=== PATIENT | male | born 2000 | race Two or more races ===

== ENCOUNTER 2022-09-05 11:53 | Emergency (ER) | payer MEDICAID ==
[~2022-09-05] VITALS: Ht 195.6 cm; Wt 156.9 kg
[2022-09-05 12:04] VITALS: BP 145/105
[2022-09-05] MEDS ORDERED: CEFTRIAXONE 1 G VIAL IM ONE (12:30)
[2022-09-05] MEDS ORDERED: METF-440 PO (12:35)
[2022-09-05] MEDS ORDERED: OXYM15MI4 NS (12:35)
[2022-09-05] MEDS ORDERED: DOXY100C2 PO (12:35)
[2022-09-05] MEDS ORDERED: LIDOCAINE /MPF 1% VIAL 5 ML VIAL ONE (12:44)
[2022-09-05] MEDS ORDERED: CEFTRIAXONE 500 MG VIAL ONE (12:44)
--- NOTE | 2022-09-05 13:24 | NUR ---
Patient discharged to home in stable condition. Written and verbal after care instructions given. Patient verbalizes understanding of instruction.
== END 2022-09-05 13:25 | disposition home or self-care (01) ==
LOC: ER 12:00
DX: Z11.3 Encounter for screening for infections with a predominantly sexual mode of transmission (principal); H92.01 Otalgia, right ear; R09.81 Nasal congestion; E11.9 Type 2 diabetes mellitus without complications
CPT/HCPCS: 99283; 96372; 82962; 87491 ×2; 87591; J0696; J3490

== ENCOUNTER 2022-12-12 08:08 | Emergency (ER) | payer MEDICAID, OTHER ==
[~2022-12-12] VITALS: Ht 190.5 cm; Wt 154.2 kg
[~2022-12-12 08:08] MED LIST: DOXY100C2 PO; METF-440 PO; OXYM15MI4 NS
--- NOTE | 2022-12-12 08:20 | NUR ---
RECEIVED PT 22 YRS MALE WALKING IN C/O RUN OUT OF HIS MEDICTION DIABETES FOR ONE DAY TODAY C/O GENE ON rt eyes
--- NOTE | 2022-12-12 08:23 | NUR ---
accu chech done 278mg/ld notefed
--- NOTE | 2022-12-12 08:34 | NUR ---
See by dr. gonzalez at bed side
[2022-12-12] MEDS ORDERED: METF-440 PO (08:41)
[2022-12-12] MEDS ORDERED: SYRI-614 SUBCUT (09:14)
[2022-12-12] MEDS ORDERED: INSU500V IJ (09:14)
[2022-12-12] MEDS ORDERED: INSU100V7 SQ (09:14)
--- NOTE | 2022-12-12 09:15 | NUR ---
DR. GRAHAM SPOOK WITH PT
--- NOTE | 2022-12-12 09:22 | NUR ---
Patient discharged to home in stable condition. Written and verbal after care instructions given. Patient verbalizes understanding of instruction.
[2022-12-12 09:25] VITALS: BP 170/95
[2022-12-12] MEDS ORDERED: NPH,100V SQ (09:52)
== END 2022-12-12 09:26 | disposition home or self-care (01) ==
LOC: ER 08:22
DX: E11.9 Type 2 diabetes mellitus without complications (principal); Z79.899 Other long term (current) drug therapy; Z79.4 Long term (current) use of insulin; Z79.84 Long term (current) use of oral hypoglycemic drugs
CPT/HCPCS: 82962-TC

== ENCOUNTER 2023-01-27 00:13 | Emergency (ER) | payer OTHER ==
[~2023-01-27] VITALS: Ht 195.6 cm; Wt 147.4 kg
[~2023-01-27 00:13] MED LIST changes: +INSU100V7 SQ; +NPH,100V SQ; +SYRI-614 SUBCUT
[2023-01-27 01:00] VITALS: BP 161/75
--- NOTE | 2023-01-27 01:28 | NUR ---
PATTERN CARRIER AT PT'S BEDSIDE
--- NOTE | 2023-01-27 01:30 | NUR ---
Patient eloped from facility. ER MD AGUSTINI notified.
--- NOTE | 2023-01-27 01:30 | NUR ---
PT REFUSED BLOOD DRAW
== END 2023-01-27 01:37 | disposition left against medical advice (07) ==
LOC: ER 00:15
DX: E11.65 Type 2 diabetes mellitus with hyperglycemia (principal); Z79.899 Other long term (current) drug therapy; Z79.4 Long term (current) use of insulin; Z79.84 Long term (current) use of oral hypoglycemic drugs
CPT/HCPCS: 82962-TC

== ENCOUNTER 2023-06-14 22:13 | Emergency (ER) | payer MEDICAID, OTHER ==
[~2023-06-14] VITALS: Ht 195.6 cm; Wt 152.6 kg
[2023-06-14 23:05] LABS: APPEARANCE,URINE CLEAR (CLEAR); BILIRUBIN,URINE NEGATIVE (NEGATIVE); BLOOD, URINE NEGATIVE Ery/uL (NEGATIVE); COLOR,URINE YELLOW (YELLOW); KETONES,URINE NEGATIVE (NEGATIVE); LEUKOCYTE ESTERASE ,URINE NEGATIVE (NEGATIVE); NITRITE, URINE NEGATIVE (NEGATIVE); PROTEIN,URINE NEGATIVE (NEGATIVE); UGLUCOSE NEGATIVE (NEGATIVE); UROBILINOGEN,URINE 0.2 EU/dL (0.2)
[2023-06-14 23:23] VITALS: BP 172/93; TEMP 98; O2SAT 97
[2023-06-16 22:06] LABS: CHLAMYDIA TRACHOMATIS NAA Negative (Negative); NEISSERIA GONORRHOEAE NAA Negative (Negative)
== END 2023-06-14 23:28 | disposition home or self-care (01) ==
LOC: ER 22:21
DX: R30.0 Dysuria (principal); I10 Essential (primary) hypertension; E11.9 Type 2 diabetes mellitus without complications; Z60.2 Problems related to living alone; Z79.4 Long term (current) use of insulin; Z79.899 Other long term (current) drug therapy
CPT/HCPCS: 87086-TC; 87491; 87591

== ENCOUNTER 2025-02-16 15:03 | Emergency (ER) | payer MEDICAID ==
[~2025-02-16] VITALS: Ht 195.6 cm; Wt 147.0 kg
[2025-02-16] MEDS ORDERED: DOXYCYCLINE HYCLATE (100 MG) 100 MG TABLET ONE (15:55)
[2025-02-16] MEDS ORDERED: CEFTRIAXONE 500 MG VIAL ONE (15:55)
[2025-02-16] MEDS ORDERED: LIDOCAINE 1% INJ 50 ML MDV IJ ONE (15:56)
[2025-02-16] MEDS: CEFTRIAXONE 500 MG VIAL IM ONE (16:01)
[2025-02-16] MEDS: DOXYCYCLINE HYCLATE (100 MG) 100 MG TABLET PO ONE (16:02)
[2025-02-16] MEDS ORDERED: NAPR-1164 PO (16:12)
[2025-02-16] MEDS ORDERED: DOXY100C2 PO (16:12)
[2025-02-16 16:31] VITALS: BP 165/87; TEMP 98.1; O2SAT 99
[2025-02-17 17:52] LABS: HIV-1 p24 ANTIGEN NON REACTIVE (NONREACTIVE); HIV-1/2 ANTIBODY NON REACTIVE (NONREACTIVE)
[2025-02-18 05:08] LABS: CHLAMYDIA TRACHOMATIS NAA Negative (Negative); NEISSERIA GONORRHOEAE NAA Negative (Negative)
== END 2025-02-16 16:33 | disposition home or self-care (01) ==
LOC: ER 15:10
DX: R30.0 Dysuria (principal); K08.89 Other specified disorders of teeth and supporting structures; E11.9 Type 2 diabetes mellitus without complications; I10 Essential (primary) hypertension; Z79.84 Long term (current) use of oral hypoglycemic drugs; Z60.2 Problems related to living alone
CPT/HCPCS: 99283; 96372; 36415; 87806; 87491; 87591; J3490; J0696